=== PATIENT | female | born 1985 | race Asian ===

== ENCOUNTER 2018-02-24 03:30 | Inpatient (IN) | payer OTHER ==
[~2018-02-24] VITALS: Ht 157.5 cm; Wt 45.8 kg
[2018-02-24] MEDS ORDERED: LACTATED RINGERS 1,000 ML IV SCH (03:49)
[2018-02-24] MEDS ORDERED: OXYTOCIN 20 UNITS in LACTATED RINGERS 1,000 ML IV SCH (03:50)
[2018-02-24] MEDS ORDERED: METHYLERGONOVINE 0.2 MG/ML AMP IM PRN ×2 (03:50→05:10)
[2018-02-24] MEDS ORDERED: NALBUPHINE HYDROCHLORIDE 10 MG/ML VIAL IVP PRN (03:50)
[2018-02-24] MEDS ORDERED: PROMETHAZINE 25 MG/ML VIAL IVP PRN (03:50)
[2018-02-24] MEDS ORDERED: NALBUPHINE 10 MG/ML AMP ONE (03:57)
[2018-02-24] MEDS ORDERED: OXYTOCIN 10 UNITS/ML VIAL ONE (03:58)
[2018-02-24] MEDS ORDERED: OXYTOCIN 20 UNITS/LR PREMIX 1,000 ML IV ONE (03:58)
[2018-02-24] MEDS ORDERED: OXYTOCIN 10 UNITS/ML VIAL IM SCH (04:00)
[2018-02-24 04:17] LABS: APPEARANCE,URINE SL CLOUDY (CLEAR); BASOPHILS # (AUTO) 0.1 K/uL (0.00-0.22); BASOPHILS % (AUTO) 0.8 % (0.0-2.0); BILIRUBIN,URINE NEGATIVE (NEGATIVE); BLOOD, URINE 3+ (NEGATIVE); COLOR,URINE YELLOW (YELLOW); EOSINOPHILS # (AUTO) 0.1 K/uL (0-0.4); HEMATOCRIT 37.4 % (36-48); HEMOGLOBIN 11.5 g/dL (12.0-16.0); LEUKOCYTE ESTERASE ,URINE TRACE (NEGATIVE); LYMPHOCYTES # (AUTO) 2.1 K/uL (2.5-16.5); LYMPHOCYTES % (AUTO) 27.6 % (20.5-51.1); MEAN CORPUSCULAR HEMOGLOBIN 21 pg (27-31); MEAN CORPUSCULAR HGB CONC 31 g/dL (33-37); MEAN CORPUSCULAR VOLUME 68.6 fL (80-94); MONOCYTES # (AUTO) 0.6 K/uL (0.8-1.0); MONOCYTES % (AUTO) 7.8 % (1.7-9.3); NEUTROPHILS # (AUTO) 4.8 K/uL (1.8-7.7); NEUTROPHILS % (AUTO) 62.8 % (42.2-75.2); NITRITE, URINE NEGATIVE (NEGATIVE); PH,URINE 6.5 (5.0-9.0); PLATELET COUNT (AUTO) 185 K/uL (140-450); RED BLOOD CELL COUNT(AUTO) 5.46 MIL/uL (4.20-5.40); RED CELL DISTRIBUTION WIDTH 13.7 % (11.6-13.7); UGLUCOSE NEGATIVE (NEGATIVE); WHITE BLOOD COUNT (AUTO) 7.7 K/uL (4.8-10.8)
[2018-02-24 04:42] LABS: RBC,URINE 3-10 (FEW) /HPF (0-5)
[2018-02-24] MEDS ORDERED: TEMAZEPAM 15 MG CAP PO PRN (05:10)
[2018-02-24] MEDS ORDERED: BENZOCAINE/MENTHOL 20%-0.5% 60 GM CAN TP PRN (05:10)
[2018-02-24] MEDS ORDERED: HYDROcodone/APAP 5/325 MG 1 TAB TAB PO PRN ×3 (05:10→08:40)
[2018-02-24] MEDS ORDERED: IBUPROFEN 800 MG TAB PO PRN (05:10)
[2018-02-24] MEDS ORDERED: oxyCODONE/APAP 5/325 MG 1 TAB TAB PO PRN (05:10)
[2018-02-24] MEDS ORDERED: OXYTOCIN 10 UNITS/ML VIAL IM PRN (05:10)
[2018-02-24] MEDS ORDERED: FERR325E14 PO (05:15)
[2018-02-24] MEDS ORDERED: PREN-546 PO (05:15)
[2018-02-24 05:20] VITALS: BP 117/72
[2018-02-24] MEDS ORDERED: IBUPROFEN 800 MG TAB ONE (05:51)
--- NOTE | 2018-02-24 08:57 | NUR ---
PATIENT HAS BEEN SCREENED AND CATEGORIZED LOW NUTRITION RISK. PATIENT WILL BE SEEN WITHIN 7 DAYS OF ADMISSION. 03/02/[address]
[2018-02-24] MEDS ORDERED: DOCUSATE SOD/SENNA 50/8.6 MG 1 TAB PO SCH (21:00)
[2018-02-25 06:26] LABS: HEMATOCRIT 31.8 % (36-48); HEMOGLOBIN 9.8 g/dL (12.0-16.0)
[2018-02-25] MEDS ORDERED: DOCUSATE SOD/SENNA 50/8.6 MG 1 TAB PO SCH (21:00)
== END 2018-02-25 22:45 | disposition home or self-care (01) | DRG 560 ==
LOC: MLD 03:30 → MFCC 08:34
PROVIDERS: ADMIT Obstetrics & Gynecology; ATTEND Obstetrics & Gynecology
PROC: 10E0XZZ Delivery of Products of Conception, External Approach (ICD-10-PCS; principal; 2018-02-24)
PROC: 10907ZC Drainage of Amniotic Fluid, Therapeutic from Products of Conception, Via Natural or Artificial Opening (ICD-10-PCS; 2018-02-24)
DX: O80 Encounter for full-term uncomplicated delivery (principal); Z37.0 Single live birth; Z3A.38 38 weeks gestation of pregnancy; Z28.21 Immunization not carried out because of patient refusal
CPT/HCPCS: 36415; 59409; 81001; 85018; 85025; 86592; 86886; 86900; 86901; 87086; J2300; J2590; J7120